=== PATIENT | female | born 1950 | race Caucasian/White ===

== ENCOUNTER → 2021-03-20 11:18 | Outpatient (CLI) | payer MEDICARE, OTHER, SELFPAY ==
[2021-03-20 13:58] LABS: COVID19 -Nasal RAPID Negative (Negative)
== END ==
PROVIDERS: Visit Provider Student in an Organized Health Care Education/Training Program
DX: Z20.822 Contact with and (suspected) exposure to COVID-19 (principal); Z01.812 Encounter for preprocedural laboratory examination
CPT/HCPCS: 87635; C9803

== ENCOUNTER 2021-03-22 08:28 | Day surgery (SDC) | payer MEDICARE, OTHER, SELFPAY ==
--- NOTE | 2021-03-21 19:01 | PM.PREOP ---
Pre-operative Note COVID-19 COVID-19 status: Negative Interval Note History & Physical reviewed/Exam performed by Physician: Yes Changes to H&P: No
--- NOTE | 2021-03-22 07:50 | P.OP_ITS ---
Operative Date/Time/Diagnoses Date of procedure: 03/22/21 Time of procedure: 09:45 Procedure & Clinicians Procedure: Preoperative diagnoses: 1. Right significant nuclear sclerotic and cortical cataract. 2. Recent posterior vitrectomy with IOL for epiretinal membrane and cataract left eye. 3. Arthritis. Postoperative diagnoses: 1. Cataract removed by phacoemulsification with placement of posterior chamber intraocular lens. Procedure: Phacoemulsification with posterior chamber intraocular lens implant Surgeon: Radha Blackmon MD Complications: None Specimen: None Implant: DIBOO+23.0 Blood loss: None Anesthesia: Retrobulbar with monitored standby Description of procedure: Patient presents with a complaint of decreased vision due to cataract which is affecting activities of daily living especially at distance. She also has symptoms due to her recent left cataract vitrectomy surgery problems with color differentiation an imbalance. She understands the extra risk of surgery during the COVID-19 epidemic and wishes to proceed. She has tested negative within 72 hours of the surgery for active Covid 19 infection. The patient wants surgery to improve vision. The patient was taken to the operating room and given IV sedation. A retrobul bar block consisting of 6 cc of 2% xylocaine without epinephrine mixed half and half with 0.5% Marcaine with 1 cc of hyaluronidase added is placed between the medial and lateral 1/3 of the inferior orbital rim. The eye is manually massaged for 30 sec, prepped using Betadine solution, and draped in the usual sterile fashion. Temporal approach was made, a 1 mm side-port incision was made 90? from the proposed clear corneal incision position. Phenylephrine 1.5% mixed with 1% xylocaine 0.2 cc was placed into the anterior chamber. Viscoat followed by Mark was then placed. A 2.6 mm clear incision with a 2.6 mm blade was placed. A 360 degree capsulorrhexis style capsulotomy was then performed with a cystitome needle on a Healon. Hydrodelineation and hydrodissection were performed. The phacoemulsification unit is introduced, and sculpting notice used to groove the central lens. It is then removed in chopping mode. Epi nucleus is removed with epinuclear mode and irrigation aspiration was used to remove the peripheral cortex. The posterior capsule is polished. The intraocular lens is selected, inspected, power confirmed, and placed in the posterior chamber. The wound was stromally hydrated and tested for leaks, there was none and it was left sutureless. Vigamox 0.1 cc was placed into the anterior chamber. Kenalog 0.2 cc was placed in the superior subconjunctival space. A drop of antibiotic and was placed and the eye was patched and shielded. The patient was stable and returned to the recovery room in excellent condition. Dictated by: Radha Blackmon MD Copy to: [facility] Same procedure as scheduled: Yes
[2021-03-22] MEDS: PROPARACAINE 0.5% OPHTH SOL 2 DROPS EYE-OP (08:53)
[2021-03-22] MEDS: CATARACT EYE COMPOUND (10 DROPS/SYRINGE) 3 DROPS EYE-OP (08:53)
[2021-03-22 09:01] VITALS: BP 136/84; PULSE 74; RESP 14; TEMP 36.1; O2SAT 99; BMI 31.6
--- NOTE | 2021-03-22 09:50 | SUR.OPER ---
Supine on eye stretcher, head on extension cradle secured with tape. Arms tucked at sides with blanket. Pillow under knees.
[2021-03-22] MEDS: ERYTHROMYCIN OPHTH 1 GM OINT 1 APPLIC EYE-RIGHT (09:53)
[2021-03-22] MEDS: LIDOCAINE 2% 4 ML, BUPIVACAINE 0.5% (PF) 4 ML, HYALURONIDASE 150 UNIT INJ (09:53)
[2021-03-22] MEDS: MOXIFLOXACIN INJ 4 MG/0.8 ML VIAL 0.5 MG EYE-OP (09:54)
[2021-03-22] MEDS: CHONDROIDTIN/SOD HYALURONATE 1.05 ML SYRINGE INTRAOCULA (09:54)
[2021-03-22] MEDS: BALANCED SALT IRRIG SOLN NO.2 500 ML, EPINEPHrine 1 MG IRR (09:54)
[2021-03-22] MEDS: HYALURONATE SODIUM 10 MG/ML SYRINGE INJ (09:55)
[2021-03-22] MEDS: PHENYLEPHRINE/LIDOCAINE VIAL (OR) 0.2 ML EYE-OP (09:55)
[2021-03-22] MEDS: TRIAMCINOLONE 50 MG/5 ML VIAL INJ (09:56)
[2021-03-22 10:19] VITALS: BP 125/70; PULSE 64; RESP 14; TEMP 36.3; O2SAT 98
== END 2021-03-22 10:35 | disposition home or self-care (01) ==
PROVIDERS: Referring Provider Ophthalmology; Visit Provider Ophthalmology
PROC: (CPT 66984; principal; 2021-03-22 09:45)
DX: H25.811 Combined forms of age-related cataract, right eye (principal)
CPT/HCPCS: 66984; J0171; J2704; J3301; J3470

== ENCOUNTER → 2021-09-23 14:07 | Outpatient (CLI) | payer MEDICARE, OTHER, SELFPAY ==
--- NOTE | 2021-09-23 14:12 | DI.MRI.S_ITS ---
PROCEDURE: MR KNEE LT WO CON INDICATIONS: Pain in left knee TECHNIQUE: Noncontrast sagittal PD fast spin echo and T2 fast spin echo with fat saturation, sagittal 3-D FLASH with fat saturation; coronal T1 spin echo and PD fast spin echo with fat saturation, and axial PD fast spin echo with fat saturation through the knee. COMPARISON: [facility] Outside Film, CR, XR KNEE 4+ VIEWS LEFT, 04/20/2021, 9:58. FINDINGS: Image quality: Excellent. Menisci: Extrusion of the medial meniscus, measuring approximately 3.7 mm, which may reflect occult root tear. The lateral meniscus demonstrates no surfacing signal. Cruciate ligaments: The anterior and posterior cruciate ligaments appear intact. Medial structures: The medial collateral ligament appears intact. The pes anserinus tendons appear normal. Lateral structures: The lateral collateral ligament complex is intact. The popliteus tendon appears normal. The visualized portion of the iliotibial band appears normal. Anterior structures: The quadriceps and patellar tendons appear intact. Patellar alignment is normal. No femoral trochlear dysplasia or ventral trochlear prominence. No edema in the infrapatellar fat pad. Bones and cartilage: No bone marrow contusions or fractures. Tricompartment osteophytosis. A 1.9 x 1.1 cm T2 hyperintense lesion is seen in the posterior aspect of the medial tibial plateau, likely representing an enchondroma. Thinning and signal heterogeneity of the medial compartment hyaline cartilage with small foci of subchondral edema. The lateral patellofemoral compartment hyaline cartilage is essentially maintained. Joint space: Small knee joint fluid. Trace Tiwari's cyst. Thickened appearance of the medial synovial plica (i.e. Series 6, image 11). IMPRESSION: 1. Mild extrusion of the medial meniscus, which may reflect an occult meniscal tear. 2. Area of abnormal signal in the medial tibial plateau, which may reflect an enchondroma. 3. Small joint effusion and trace popliteal fossa cyst. 4. Thickening of the medial synovial plica. Dictated by: Gary Castillo M.D. on 09/25/2021 at 10:23 Approved by: Gary Castillo M.D. on 09/25/2021 at 10:35
== END ==
PROVIDERS: PCP Physician Assistant; Referring Provider Orthopaedic Surgery; Visit Provider Orthopaedic Surgery
DX: M25.462 Effusion, left knee (principal); M67.52 Plica syndrome, left knee; M25.562 Pain in left knee
CPT/HCPCS: 73721

== ENCOUNTER → 2021-10-26 12:16 | Outpatient (CLI) | payer MEDICARE, OTHER, SELFPAY ==
[2021-10-26 12:59] LABS: Add Manual Diff / Slide Review NO; Basophils Absolute Auto 100 /uL (0-100); Basophils Percent Auto 0.8 % (0-2); Eosinophils Absolute Auto 100 /uL (0-450); Eosinophils Percent Auto 1.9 % (2-4); Hematocrit 37.4 % (36-46); Hemoglobin 12.2 g/dL (12.0-16.0); Lymphocytes Absolute Auto 1700 /uL (1100-4500); Lymphocytes Percent Auto 24.6 % (25-40); Mean Corpuscular HGB Conc 32.7 % (30-36); Mean Corpuscular Hemoglobin 26.4 PG (26-34); Mean Corpuscular Volume 80.6 fL (80-100); Monocytes Absolute Auto 500 /uL (0-900); Monocytes Percent Auto 7.3 % (3-14); Neutrophils Absolute Auto 4500 /uL (1500-7000); Neutrophils Percent Auto 65.4 % (50-75); Platelet Count 330 X10^3/uL (150-400); Red Blood Cell Count 4.64 X10^6/uL (4.0-5.2); Red Cell Distribution Width 15.1 % (11.6-14.8); White Blood Cell Count 6.9 X10^3/uL (4.5-11.0)
[2021-10-26 13:12] LABS: Appearance Urine UA CLEAR; Bilirubin Urine UA NEGATIVE (NEGATIVE); Color Urine UA YELLOW; Glucose Urine UA NEGATIVE (Negative); Ketones Urine UA NEGATIVE (NEGATIVE); Leukocyte Esterase Urine UA NEGATIVE (NEGATIVE); Nitrite Urine UA NEGATIVE (Negative); Occult Blood Urine UA NEGATIVE (Negative); Protein Urine UA NEGATIVE (Negative); Urobilinogen Urine UA 0.2 E.U./dL (0.2)
[2021-10-26 13:32] LABS: Bacteria Urine None Seen; Culture Indicated Urine Cult Not Indicated; Hemoglobin A1C% w Est Avg Glu 5.7 % (4.0-6.0); RBC Urine None Seen (0-5/HPF); Squamous Epithelial Cell Urine 0-1 /HPF (0-5/HPF); WBC Urine 0-1/HPF (0-5/HPF); pH Urine UA 6.5 (4.5-8.0)
[2021-10-26 13:38] LABS: BUN Creatinine Ratio 21.1 (6-22); Blood Urea Nitrogen 19 mg/dL (7-17); Calcium 9.4 mg/dL (8.4-10.2); Carbon Dioxide 28 mmol/L (22-32); Chloride 104 mmol/L (98-107); Estimated Glomerular Filt Rate > 60.0 mL/min (>60); Glucose 101 mg/dL (80-110); HEMOLYSIS < 15 (0-50); Potassium 4.8 mmol/L (3.4-5.1); Sodium 139 mmol/L (137-145)
== END ==
PROVIDERS: PCP Physician Assistant; Referring Provider Orthopaedic Surgery; Visit Provider Orthopaedic Surgery
DX: Z01.818 Encounter for other preprocedural examination (principal); R73.9 Hyperglycemia, unspecified; Z01.812 Encounter for preprocedural laboratory examination; N39.0 Urinary tract infection, site not specified
CPT/HCPCS: 36415; 80048; 81001; 83036; 85025; 93005; 93010

== ENCOUNTER 2023-09-18 09:49 | Day surgery (SDC) | payer MEDICARE, OTHER, SELFPAY ==
--- NOTE | 2023-09-18 | PATH_ITS ---
[facility] Accession Number: [id number] No. of containers..02 Tissue . 01 Material submitted: . PART A: small bowel - SMALL BOWEL PART B: gastrointestinal site - GASTRIC . 01 Diagnosis: A. Small Bowel, Biopsy: Small bowel mucosa with no significant diagnostic alterations. No evidence of celiac disease. . B. Gastric, Biopsy: Gastric mucosa with no significant diagnostic alterations. No Helicobacter pylori organisms identified on H/E stain. No dysplasia or malignancy. [facility] 09/27/2023 1120 Local . 01 Electronically signed: . Kemi Kwon MD, Pathologist NPI- [id number] . 01 Gross description: . Part A: SMALL BOWEL: Received in formalin is 1 fragment(s) of smith, soft tissue measuring 0.3 x 0.3 x 0.2 cm submitted entirely in 1 cassette(s) Part B: GASTRIC : Received in formalin is 2 fragment(s) of smith, soft tissue measuring 0.3 x 0.2 x 0.1 cm to 0.1 x 0.1 x 0.1 cm submitted entirely in 1 cassette(s) /AAY 09/19/2023 0442 Local . 01 Pathologist provided ICD-10: Z86.010, K21.9 . 01 CPT . 671098, 543632 Specimen Comment: A courtesy copy of this report has been sent to [phone] Performed at: [facility] [address] [place] [address], [place], [place] [id number] MD Adrien Henriquez MD Phone: [phone]
[2023-09-18 10:08] VITALS: BMI 35.9
[2023-09-18 10:13] VITALS: BP 117/84; PULSE 96; RESP 17; TEMP 36.2; O2SAT 99
--- NOTE | 2023-09-18 10:16 | PM.HP.1 ---
History of Present Illness History of Present Illness Date Patient Seen: 09/18/23 Chief complaint: EGD/Colonoscopy Narrative: Iron deficiency anemia found at blood donation. History of colon polyps. GE reflux. [facility] Medical History (Updated 09/18/23 @ 10:03 by Edmundo Burch RN) Iron deficiency anemia GERD (gastroesophageal reflux disease) Low back pain Hypercholesterolemia Osteoporosis Social History household members: spouse Smoking Status: Never smoker alcohol intake: current Meds Home Medications and Allergies Home Medications Medication Instructions Recorded Confirmed Type losartan 25 mg tablet 25 mg PO DAILY 09/18/23 09/18/23 History meloxicam 7.5 mg tablet 7.5 mg PO DAILY 09/18/23 09/18/23 History omeprazole 20 mg capsule,delayed 20 mg PO DAILY 09/18/23 09/18/23 History release Allergies Allergy/AdvReac Type Severity Reaction Status Date / Time Sulfa (Sulfonamide Allergy Mild Flushing Verified 09/18/23 10:06 Antibiotics) Exam Narrative Exam Narrative: Oropharynx free of lesions Chest clear to auscultation percussion Cardiac exam reveals no S3 or murmur Assessment & Plan Assessment & Plan narrative: History of iron deficiency anemia on oral iron improving. Need for colonoscopy in EGD. Risks, benefits, alternatives have been explained.
--- NOTE | 2023-09-18 10:17 | PM.OP.EC ---
Operative Date/Time/Diagnoses Date of procedure: 09/18/23 Pre-op diagnosis: See indication and findings Procedure & Clinicians Study performed: EGD and colonoscopy Indications: Iron deficiency anemia Surgeon: Ivonne Jordan Procedure Notes Procedure in detail: After informed consent was obtained the patient placed in left lateral decubitus position. The video upper scope was placed into the oropharynx and with the patient's help swelled into the esophagus the esophagus stomach and duodenum were carefully examined. On withdrawal, retroflexed view the GE junction was performed. The scope was removed. The patient tolerated procedure well. The patient was then turned to the colonoscope substituted. This is introduced into the rectum and slowly advanced to the cecum. Preparation was good. On slow withdrawal mucosa was carefully examined. The scope was removed. The patient tolerated procedure well. Blood loss none Complications none Sedation mac Finding EGD 1. Normal distal esophagus with out any evidence of esophagitis 2. Small hiatal hernia with diaphragmatic hiatus at 36-37 cm and hiatus at 40 cm. No Storm lesions were seen. 3. Streaky gastric erythema in biopsies taken to rule out Helicobacter 4. Normal duodenal bulb and sweep biopsies taken to rule out celiac Colonoscopy 1. Normal colonoscopy to cecum I would suggest that she undergo a small bowel PillCam to complete her workup.. I will have the office call her to arrange.
[2023-09-18] MEDS: LACTATED RINGERS 1,000 ML 42 ML IV (10:19)
[2023-09-18 11:29] VITALS: BP 121/78; PULSE 75; RESP 14; TEMP 36.8; O2SAT 90
[2023-09-18 11:33] VITALS: BP 121/74; PULSE 74; RESP 15; O2SAT 94
[2023-09-18 11:38] VITALS: BP 132/84; PULSE 70; RESP 16; O2SAT 95
[2023-09-18 11:50] VITALS: BP 120/82; PULSE 68; RESP 14; O2SAT 96
== END 2023-09-18 12:11 | disposition home or self-care (01) ==
PROVIDERS: PCP Physician Assistant; Referring Provider Internal Medicine Gastroenterology; Visit Provider Internal Medicine Gastroenterology
PROC: 0DJ08ZZ Inspection of Upper Intestinal Tract, Via Natural or Artificial Opening Endoscopic (ICD-10-PCS; CPT 43235; principal; 2023-09-18 11:00)
PROC: 0DJD8ZZ Inspection of Lower Intestinal Tract, Via Natural or Artificial Opening Endoscopic (ICD-10-PCS; CPT 45378; 2023-09-18 11:00)
DX: D50.9 Iron deficiency anemia, unspecified (principal); K46.9 Unspecified abdominal hernia without obstruction or gangrene
CPT/HCPCS: 43239; J2704

== ENCOUNTER → 2023-10-01 10:05 | Outpatient (CLI) | payer MEDICARE, OTHER, SELFPAY ==
--- NOTE | 2023-10-01 | DI.MRI.S_ITS ---
PROCEDURE: MR LUMBAR SPINE WO CON INDICATIONS: Radiculopathy, lumbar region TECHNIQUE: Noncontrast sagittal T1 spin echo and T2 fast echo, sagittal STIR, and T2 fast spin echo through the lumbar spine. In cases with scoliosis, additional coronal T2 fast spin echo may be performed. COMPARISON: [facility] Outside Film, CR, XR LUMBAR SPINE 2 OR 3 VIEWS, 07/17/2022, 11:08. FINDINGS: Image quality: Excellent. Alignment and Curvature: There is trace anterolisthesis L4 on L5, trace retrolisthesis of T12 on L1. Bone Marrow: Marrow is of normal overall signal. Focus of increased T1-T2 signal is present within L1 likely hemangioma. No acute vertebral body compression fractures. Spinal Cord: Conus medullaris terminates at the L1-2 level. Visualized cord demonstrates normal signal and size. Paraspinous Soft Tissues: No paravertebral masses. Discs: Scattered areas of multilevel mild to moderate disc desiccation. T12-L1: No disc bulge, spinal stenosis or foraminal narrowing. L1-L2: No disc bulge, spinal stenosis or foraminal narrowing. Mild facet and ligamentum flavum hypertrophy and epidural lipomatosis. L2-L3: No disc bulge, spinal stenosis or foraminal narrowing. Mild facet/ligamentum flavum hypertrophy and epidural lipomatosis. L3-L4: Mild disc bulge without spinal stenosis. Facet and ligamentum flavum hypertrophy are present with epidural lipomatosis. L4-L5: Mild disc bulge with effacement of the anterior thecal sac. No foraminal narrowing. Facet and ligamentum flavum hypertrophy are present. L5-S1: Mild disc bulge without spinal stenosis or foraminal narrowing. IMPRESSION: Minimal scattered degenerative changes as described above. Dictated by: Trinh Foy M.D. on 10/01/2023 at 15:40 Approved by: Trinh Foy M.D. on 10/01/2023 at 15:42
== END ==
PROVIDERS: PCP Physician Assistant; Referring Provider Physical Medicine & Rehabilitation; Visit Provider Physical Medicine & Rehabilitation
DX: M54.16 Radiculopathy, lumbar region (principal)
CPT/HCPCS: 72148